=== PATIENT | male | born 1980 | race Caucasian/White ===

== ENCOUNTER 2023-01-10 20:27 | Emergency (ER) | payer SELFPAY ==
[~2023-01-10] VITALS: Ht 182.9 cm; Wt 100.0 kg
[2023-01-10 20:38] VITALS: BP 181/121; PULSE 133; RESP 18; TEMP 98.6; O2SAT 95
--- NOTE | 2023-01-10 21:30 | NUR ---
BLOOD CLEANED UP FROM PT'S FACE WITH NS & 4X4. MD AWARE THAT PT STILL WAITING TO BE SEEN. RN REQUESTED HEAD CT D/T TRAUMA, MD DENIED REQUEST. REQUIREMENTS MANAGER AWARE.
[2023-01-10] MEDS ORDERED: bacitracin 15gm ointment TP ONE (23:25)
[2023-01-11] MEDS ORDERED: DICL75TA5 PO (18:07)
[2023-01-11] MEDS ORDERED: CYCL-1 PO (18:07)
== END 2023-01-10 23:32 ==
LOC: ER 20:28
DX: S00.81XA Abrasion of other part of head, initial encounter (principal); X58.XXXA Exposure to other specified factors, initial encounter; Y93.89 Activity, other specified; Y92.89 Other specified places as the place of occurrence of the external cause; Y99.8 Other external cause status
CPT/HCPCS: 70450; 99284

== ENCOUNTER 2023-01-11 14:08 | Emergency (ER) | payer OTHER ==
[~2023-01-11] VITALS: Ht 185.4 cm; Wt 125.0 kg
[2023-01-11 14:16] VITALS: BP 156/93; PULSE 98; O2SAT 98
[2023-01-11] MEDS ORDERED: methylPREDNISolone sod succ 125mg/2ml vial IM ONE (17:20)
[2023-01-11] MEDS ORDERED: ketorolac trometh. 30mg/ml inj. IV ONE (17:20)
[2023-01-11] MEDS ORDERED: ketorolac trometh. 30mg/ml inj. IM ONE (17:25)
[2023-01-11 17:49] VITALS: RESP 17
[2023-01-11] MEDS ORDERED: DICL75TA5 PO (18:07)
[2023-01-11] MEDS ORDERED: CYCL-1 PO (18:07)
[2023-01-11 18:17] VITALS: TEMP 98
== END 2023-01-11 18:19 | disposition home or self-care (01) ==
LOC: ER 14:09
DX: S66.911A Strain of unspecified muscle, fascia and tendon at wrist and hand level, right hand, initial encounter (principal); S40.021A Contusion of right upper arm, initial encounter; R20.0 Anesthesia of skin; Y04.8XXA Assault by other bodily force, initial encounter; Y93.89 Activity, other specified; Y92.89 Other specified places as the place of occurrence of the external cause; Y99.8 Other external cause status
CPT/HCPCS: 73080; 73090; 73110; 73130; 96372; 99284; J1885; J2930; A4565